=== PATIENT | female | born 2005 | race Caucasian/White ===

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

== ENCOUNTER 2024-11-20 17:59 | Inpatient (IN) ==
[2024-11-20] MEDS ORDERED: Lidocaine 1% VIAL 10 MG/ML 30 ML VIAL INJ PRN (18:34)
[2024-11-20] MEDS: Lactated Ringers 1000 ml BAG 1,000 ML IV ONE (20:05)
[2024-11-20 20:33] LABS: ABS Basophils 0.1 10^3/uL (0.0-0.1); ABS Eosinophils 0.1 10^3/uL (0.0-0.5); ABS Lymphocytes 2.6 10^3/uL (1.0-4.8); ABS Neutrophils 8.8 10^3/uL (1.5-7.6); ABS Nucleated RBC 0.01 10^3/ul; Eosinophil % 1.2 %; Hematocrit 33.3 % (35-45); Hemoglobin 11.5 g/dL (11.5-14.3); Lymphocyte % 20.5 %; Mean Corpuscular Hemoglobin 30.8 pg (27-33); Mean Corpuscular Hgb Conc 34.4 g/dL (31-36); Mean Corpuscular Volume 89.5 fL (80-97); Mean Platelet Volume 7.3 fL (7.5-11.2); Nucleated Red Blood Cells % 0.1 %/100WBC (0.0-0.8); Platelet Count 287 10^3/uL (150-450); Red Blood Count 3.72 10^6/uL (3.63-4.92); Red Cell Distribution Width 13.4 % (12-17); White Blood Count 12.6 10^3/uL (3.8-11.8)
[2024-11-20] MEDS: Dinoprostone 10 MG VAG.SUPP VAGINAL ONE (20:39)
[2024-11-20 21:07] LABS: Urine Benzodiazepine Screen None Detected (None Detect); Urine Cannabinoids Screen Presumptive Positive (None Detect); Urine Opiates Screen None Detected (None Detect)
[2024-11-21] MEDS: Ondansetron 4 mg VIAL 2 MG/ML 2 ml VIAL IV PRN (03:55)
[2024-11-21] MEDS: miSOPROStol 100 mcg TAB PO ONE ×3 (10:16→19:10)
[2024-11-22] MEDS: miSOPROStol 100 mcg TAB PO ONE (00:13)
[2024-11-22] MEDS: Nalbuphine 10 MG/ML 1 ML VIAL IV PRN (09:44)
[2024-11-22] MEDS: miSOPROStol 100 mcg TAB ONE (10:26)
[2024-11-22] MEDS: Ondansetron ODT 4 mg TAB 4 MG TAB PO PRN (11:30)
[2024-11-22] MEDS: OBEPIDURAL (200 ML) 200 ML EPIDURAL SCH (13:44)
[2024-11-22] MEDS: miSOPROStol 100 mcg TAB VAGINAL ONE (14:08)
[2024-11-22] MEDS ORDERED: Phenylephrine 40 mcg/mL 10mL (400mcg) SYRINGE IV PUSH PRN ×2 (14:15)
[2024-11-22] MEDS ORDERED: Sodium Citrate/Citric Acid LIQ 15 ML UDC PO PRN (14:15)
[2024-11-22 14:48] LABS: Urine Appearance Clear; Urine Bilirubin Negative (Negative); Urine Blood Negative (Negative); Urine Color Light-Yellow; Urine Glucose Negative (Negative); Urine Ketones 1+ (Negative); Urine Nitrite Negative (Negative); Urine Protein Negative (Negative); Urine Specific Gravity 1.014 (1.002-1.030); Urine Urobilinogen Negative (Negative); Urine pH 7.5 (5.0-8.0)
[2024-11-22] MEDS: Oxytocin in LR 20,000 MILLI.UNIT/1,000 ML BAG IV SCH (15:39)
[2024-11-23] MEDS: Lactated Ringers 1000 ml BAG 1,000 ML IV SCH ×2 (01:13→08:17)
[2024-11-23] MEDS: Oxytocin in LR 0 MILLI.UNIT/0 ML BAG IV ONE (08:16)
[2024-11-23] MEDS: Lactated Ringers 1000 ml BAG 1,000 ML IV ONE ×2 (08:16)
[2024-11-23] MEDS: OBEPIDURAL (200 ML) 200 ML EPIDURAL ONE (08:16)
[2024-11-23] MEDS: Terbutaline INJ 1 MG/ML 1 ml VIAL SUBCUT ONE (08:17)
[2024-11-23] MEDS: Nalbuphine 10 MG/ML 1 ML VIAL ONE (08:17)
[2024-11-23] MEDS: Phenylephrine 40 mcg/mL 10mL (400mcg) SYRINGE ONE (08:18)
[2024-11-23] MEDS: Methylergonovine 0.2 mg AMPULE 1 ml AMP ONE (10:35)
[2024-11-23] MEDS ORDERED: Glycerin ADULT 2.4 gm SUPP PR PRN (10:47)
[2024-11-23] MEDS ORDERED: RHO D Immune Globulin (HUMAN) 300 MCG = 1,500 I.U. INJ IM PRN (10:47)
[2024-11-23] MEDS: Oxytocin in LR 20,000 MILLI.UNIT/1,000 ML BAG IV SCH (11:15)
[2024-11-23] MEDS: Witch Hazel PAD JAR TOPICAL PRN (11:43)
[2024-11-23] MEDS: Dibucaine 1% OINT 28.35 GM TUBE PR PRN (11:43)
[2024-11-23] MEDS: Lidocaine/Epinephrin 1.5%/200 5 ML AMP INJ ONE (11:46)
[2024-11-23] MEDS: Tranexamic Acid 1 GM/100ML BAG 0 MG/0 ML BAG IV ONE ×2 (11:46→12:54)
[2024-11-23] MEDS: Penicillin G Potassium IV 3,000,000 UNITS in NS 0.9% 100 ml BAG 100 ML IVPB SCH (14:53)
[2024-11-23] MEDS: Penicillin G Potassium IV 5,000,000 UNITS in NS 0.9% 100 ml BAG 100 ML IVPB ONE (14:54)
[2024-11-24 06:14] LABS: ABS Basophils 0.1 10^3/uL (0.0-0.1); ABS Eosinophils 0.1 10^3/uL (0.0-0.5); ABS Lymphocytes 2.4 10^3/uL (1.0-4.8); ABS Monocytes 1.2 10^3/uL (0.0-0.9); ABS Neutrophils 8.4 10^3/uL (1.5-7.6); Eosinophil % 1.2 %; Hemoglobin 8.9 g/dL (11.5-14.3); Lymphocyte % 19.9 %; Mean Corpuscular Hemoglobin 30.3 pg (27-33); Mean Corpuscular Hgb Conc 34.1 g/dL (31-36); Mean Corpuscular Volume 88.9 fL (80-97); Mean Platelet Volume 6.8 fL (7.5-11.2); Platelet Count 224 10^3/uL (150-450); Red Blood Count 2.92 10^6/uL (3.63-4.92); Red Cell Distribution Width 13.6 % (12-17); White Blood Count 12.2 10^3/uL (3.8-11.8)
[2024-11-24] MEDS: Varicella Virus Vaccine Live 0.5 ML VIAL SUBCUT ONE (18:36)
[2024-11-25 08:09] VITALS: BP 118/66
== END 2024-11-25 12:34 | disposition home or self-care (01) | DRG 560 ==
LOC: MCHOBOUT 17:59 → MCHOB 18:58
PROVIDERS: ADMIT Midwife